=== PATIENT | female | born 1960 | race Caucasian/White ===

== ENCOUNTER → 2024-01-09 15:15 | Outpatient (REF) | payer BC, SELFPAY | LOC: RAD 15:15 | PROVIDERS: ATTENDING PHYSICIAN Physician Assistant; FAMILY PHYSICIAN Family Medicine | DX: E04.1 Nontoxic single thyroid nodule (principal) | CPT/HCPCS: 76536 ==

== ENCOUNTER → 2024-04-07 08:49 | Outpatient (REF) | payer BC, SELFPAY ==
[2024-04-07 10:08] LABS: % Eosinophils 2.7 % (0-6); % Immature Granulocytes 0.7 % (0-0.5); % Lymphocytes 28.9 % (20.5-51.1); % Monocytes 8.2 % (1.7-9.3); % Neutrophils 58.5 % (42.2-75.2); Absolute Basophils 0.1 10^3/uL (0-0.2); Absolute Eosinophils 0.2 10^3/uL (0-0.7); Absolute Immature Granulocytes 0.1 10^3/uL (0-0.05); Absolute Lymphocytes 2.1 10^3/uL (1.2-3.4); Absolute Monocytes 0.6 10^3/uL (0.1-0.6); Absolute Neutrophils 4.3 10^3/uL (1.4-6.5); Hematocrit 38.7 % (37.0-47.0); Hemoglobin 13.3 g/dL (12.0-16.0); Mean Corp Hgb Conc. 34.4 g/dL (33.0-37.0); Mean Corpuscular Hgb 29.7 pg (27.0-31.0); Mean Corpuscular Volume 86.4 fL (81.0-99.0); Mean Platelet Volume 11.9 fL (7.4-10.4); Nucleated Red Blood Cells % 0 %; Platelet Count 257 10^3/uL (130-400); Red Blood Cell Count 4.48 10^6/uL (4.20-5.40); Red Cell Dist. Width 13.1 % (11.5-14.5); White Blood Cell Count 7.3 10^3/uL (4.8-10.8)
[2024-04-07 10:31] LABS: ALT (SGPT) 30 U/L (0-35); AST (SGOT) 43 U/L (14-36); Albumin 4.2 g/dl (3.5-5.0); Alkaline Phosphatase 47 U/L (38-126); Blood Urea Nitrogen 15 mg/dl (7-17); Calcium 10.1 mg/dl (8.4-10.2); Carbon Dioxide 27 mmol/L (22-30); Chloride 106 mmol/L (98-107); Glucose 107 mg/dl (70-99); HDL Cholesterol 30 mg/dl; LDL Cholesterol, Calculated 70 mg/dl; Potassium 3.9 mmol/L (3.5-5.1); Sodium 143 mmol/L (135-145); Total Bilirubin 0.6 mg/dl (0.2-1.3); Total Cholesterol 138 mg/dl (50-199); Total Protein 6.7 g/dl (6.3-8.2); Triglyceride 193 mg/dl (10-149); Very Low Density Lipoprotein 38 mg/dl (0-30); eGFR > 60.00
[2024-04-07 10:46] LABS: Protein/creatinine Ratio 0.1; Urine Protein 17 mg/dl
[2024-04-07 10:50] LABS: Microalbumin, Random Urine 7.8 mg/dl (0.6-1.7); Microalbumin/creatinine Ratio 58.9 mg/g
[2024-04-07 12:11] LABS: Glycohemoglobin (HgbA1c) 6.5 % (4.0-5.6)
[2024-04-07 13:05] LABS: TSH Reflex To Free T4 0.65 uIU/ml (0.47-4.68)
== END ==
LOC: REG 08:49
PROVIDERS: ATTENDING PHYSICIAN Physician Assistant; FAMILY PHYSICIAN Student in an Organized Health Care Education/Training Program
DX: E78.5 Hyperlipidemia, unspecified (principal); E11.9 Type 2 diabetes mellitus without complications; E04.1 Nontoxic single thyroid nodule; Z00.01 Encounter for general adult medical examination with abnormal findings; Z87.891 Personal history of nicotine dependence; J44.9 Chronic obstructive pulmonary disease, unspecified; I10 Essential (primary) hypertension; E11.65 Type 2 diabetes mellitus with hyperglycemia; Z79.4 Long term (current) use of insulin; J30.2 Other seasonal allergic rhinitis; K21.9 Gastro-esophageal reflux disease without esophagitis; F32.A Depression, unspecified; R49.0 Dysphonia
CPT/HCPCS: 36415; 80053; 80061; 82043; 82570; 83036; 84156; 84443; 85025

== ENCOUNTER → 2024-05-14 14:55 | Outpatient (REF) | payer BC, SELFPAY | LOC: WDC 14:55 | PROVIDERS: ATTENDING PHYSICIAN Student in an Organized Health Care Education/Training Program | DX: R92.8 Other abnormal and inconclusive findings on diagnostic imaging of breast (principal) | CPT/HCPCS: 76642 ==

== ENCOUNTER → 2024-07-06 13:30 | Outpatient (REF) | payer BC, SELFPAY | LOC: RAD 13:30 | PROVIDERS: ATTENDING PHYSICIAN Internal Medicine Critical Care Medicine; FAMILY PHYSICIAN Student in an Organized Health Care Education/Training Program | DX: Z87.891 Personal history of nicotine dependence (principal); R05.9 Cough, unspecified | CPT/HCPCS: 71046; 71271 ==

== ENCOUNTER 2024-07-13 16:25 | Emergency (ER) | payer BC, SELFPAY ==
[2024-07-13 16:26] VITALS: BP 149/86
[2024-07-13 16:43] LABS: % Basophils 0.6 % (0-2); % Immature Granulocytes 0.3 % (0-0.5); % Lymphocytes 20.9 % (20.5-51.1); % Monocytes 9.5 % (1.7-9.3); % Neutrophils 66.7 % (42.2-75.2); Absolute Basophils 0.1 10^3/uL (0-0.2); Absolute Eosinophils 0.2 10^3/uL (0-0.7); Absolute Monocytes 0.9 10^3/uL (0.1-0.6); Absolute Neutrophils 6.4 10^3/uL (1.4-6.5); Hematocrit 34.9 % (37.0-47.0); Hemoglobin 12.1 g/dL (12.0-16.0); Mean Corp Hgb Conc. 34.7 g/dL (33.0-37.0); Mean Corpuscular Hgb 29.7 pg (27.0-31.0); Mean Corpuscular Volume 85.5 fL (81.0-99.0); Mean Platelet Volume 11.2 fL (7.4-10.4); Nucleated Red Blood Cells % 0 %; Platelet Count 296 10^3/uL (130-400); Red Blood Cell Count 4.08 10^6/uL (4.20-5.40); Red Cell Dist. Width 12.8 % (11.5-14.5); White Blood Cell Count 9.7 10^3/uL (4.8-10.8)
[2024-07-13 17:13] LABS: ALT (SGPT) 22 U/L (0-35); AST (SGOT) 30 U/L (14-36); Albumin 4.1 g/dl (3.5-5.0); Alkaline Phosphatase 47 U/L (38-126); Blood Urea Nitrogen 24 mg/dl (7-17); Carbon Dioxide 26 mmol/L (22-30); Chloride 102 mmol/L (98-107); Glucose 113 mg/dl (70-99); Potassium 3.6 mmol/L (3.5-5.1); Sodium 143 mmol/L (135-145); Total Bilirubin 0.7 mg/dl (0.2-1.3); Total Protein 6.7 g/dl (6.3-8.2); eGFR 39.16
[2024-07-13 17:14] LABS: Lipase 105 U/L (23-300)
--- NOTE | 2024-07-13 17:32 | ED.GENMED ---
History of Present Illness
<Cecilia Fonseca ASSOCIATE PROFESSOR OF MUSIC - Last Filed: 07/13/24 23:11>
General
Chief Complaint: Abdominal Pain
Source: patient
Exam Limitations: none
Time Seen by Provider: 07/13/24 17:11
Nursing documentation reviewed up to this point in time: agreed with
History of Present Illness
History of Present Illness:
63-year-old female with history of IDDM, diabetic neuropathy, HTN, HLD, GERD, Cholecystectomy, congenital solitary L kidney, presents with 5 days of 'weird' taste in her mouth, anytime she eats, 10 minutes later she has 'really bad stomach pains.'
She is had diarrhea 6 or 7 times a day, sometimes just soft stools sometimes liquid diarrhea, nonbloody. She has had intermittent fever, temp max was 100.2 four days ago. She has had intermittent nausea but no vomiting.
She was treated for URI from 06/25-07/05 with doxycycline 100 twice daily x 10 days and prednisone 20 mg daily for 8 days, then a Z-Apolinar from 07/06-11/10 URI improved
Past History
<Cecilia Fonseca ASSOCIATE PROFESSOR OF MUSIC - Last Filed: 07/13/24 23:11>
Past History
ED Past Medical History: Asthma, HTN, Hypercholesterolemia, IDDM and Other (L solitary kidney from , )
ED Past Surgical History: Cholecystectomy, and Orthopedic
Social History
Tobacco: Non-smoker
Alcohol: None
Personal:
Living: with family
Employment: Employed
Review of Systems
<Cecilia Fonseca ASSOCIATE PROFESSOR OF MUSIC - Last Filed: 07/13/24 23:11>
Review of Systems
Allergies reviewed?: Yes
All Other Systems: ROS reviewed and negative except as documented in HPI and ROS
Constitutional: Reports fever (intermittent low grade)
Respiratory: Denies trouble breathing
Cardiac: Denies chest pain
ABD/GI: Reports abdominal pain, nausea, diarrhea and anorexia; Denies vomiting, bloody stools or black stools
: Reports no symptoms
Musculoskeletal: Reports no symptoms
Skin: Reports no symptoms
Neurological: Reports no symptoms
Phy Exam
<Cecilia Fonseca ASSOCIATE PROFESSOR OF MUSIC - Last Filed: 07/13/24 23:11>
Physical Exam
Physical Exam:
GENERAL: No acute distress. A&Ox3.
CONSTITUTIONAL: Afebrile.
EYES: clear, conjunctivae normal
ENMT: moist mucus membranes, Pharynx nl
RESPIRATORY: Regular respirations, nonlabored, lungs clear.
CARDIOVASCULAR: Regular rate and rhythm, no murmurs, no rubs.
GI: Soft, tender left side abdomen, nontender, normal BS
MUSCULOSKELETAL: Moves with ease. Well perfused.
SKIN: Warm, dry, pink
PSYCH: Normal mood and affect. Well kept, interactive and appropriate
NEUROLOGIC: Awake, alert and oriented. No focal neurological deficits
Course
<Cecilia Fonseca, ASSOCIATE PROFESSOR OF MUSIC - Last Filed: 07/13/24 23:11>
Orders/Labs/Results
Orders:
Orders
07/13/24 16:31
CBC/With Diff [Complete Blood Count/With Diff] Urgent
CMP [Comprehensive Metabolic Panel] Urgent
Lipase Urgent
07/13/24 17:33
0.9% Sodium Chloride 1000 ml [Nss] 1,000 ml IV BOLUS
07/13/24 18:24
Iohexol [Omnipaque] See Protocol PO NOW STA
07/13/24 18:25
CT Abd/pel (oral only)-DH Only Urgent
Comment:
Reason For Exam: L abd pain
07/13/24 18:35
Urinalysis Reflex To Culture Urgent
Date Specimen was Collected: 07/13/24
Time Specimen was Collected: 18:26
Urine Microscopic Reflex Cult Urgent
Urine Culture Urgent
BASSAM Source: U
Specimen Description:
Date Specimen was Collected: 07/13/24
Time Specimen was Collected: 18:26
07/13/24 20:50
STOOL [C difficile Antigen & Toxins] Urgent
BASSAM Source: Feces/Stool
Specimen Description:
Date Specimen was Collected: 07/13/24
Time Specimen was Collected: 20:49
Stool Culture Urgent
BASSAM Source: Feces/Stool
Specimen Description:
Date Specimen was Collected: 07/13/24
Time Specimen was Collected: 20:49
07/13/24 22:16
Dicyclomine [Bentyl] 10 mg PO NOW STA
Abnormal Lab Results
07/13/24 07/13/24
16:31 18:35
RBC 4.08 L 10^6/uL
(4.20-5.40)
Hct 34.9 L %
(37.0-47.0)
MPV 11.2 H fL
(7.4-10.4)
Absolute Monos (auto) 0.9 H 10^3/uL
(0.1-0.6)
Monocytes % 9.5 H %
(1.7-9.3)
BUN 24 H mg/dl
(7-17)
Creatinine 1.5 H mg/dL
(0.6-1.0)
Glucose 113 H mg/dl
(70-99)
Leukocyte Esterase Rfl 1+ A
(Negative)
07/13/24 16:31
07/13/24 16:31
Vital Signs
Initial and Last Documented VS:
Initial Vital Signs
Temp Pulse Resp BP Pulse Ox
98.3 F 95 19 149/86 95
07/13/24 16:26 07/13/24 16:26 07/13/24 16:26 07/13/24 16:26 07/13/24 16:26
Last Documented Vital Signs
Temp Pulse Resp BP Pulse Ox
98.3 F 95 21 150/82 96
07/13/24 16:26 07/13/24 20:30 07/13/24 20:30 07/13/24 20:08 07/13/24 20:30
<Florentino Hatch PA-C - Last Filed: 07/14/24 10:29>
Orders/Labs/Results
Orders:
Orders
07/13/24 16:31
CBC/With Diff [Complete Blood Count/With Diff] Urgent
CMP [Comprehensive Metabolic Panel] Urgent
Lipase Urgent
07/13/24 17:33
0.9% Sodium Chloride 1000 ml [Nss] 1,000 ml IV BOLUS
07/13/24 18:24
Iohexol [Omnipaque] See Protocol PO NOW STA
07/13/24 18:25
CT Abd/pel (oral only)-DH Only Urgent
Comment:
Reason For Exam: L abd pain
07/13/24 18:35
Urinalysis Reflex To Culture Urgent
Date Specimen was Collected: 07/13/24
Time Specimen was Collected: 18:26
Urine Microscopic Reflex Cult Urgent
Urine Culture Urgent
BASSAM Source: U
Specimen Description:
Date Specimen was Collected: 07/13/24
Time Specimen was Collected: 18:26
07/13/24 20:50
STOOL [C difficile Antigen & Toxins] Urgent
B[facility] Source: Feces/Stool
Specimen Description:
Date Specimen was Collected: 07/13/24
Time Specimen was Collected: 20:49
Stool Culture Urgent
BASSAM Source: Feces/Stool
Specimen Description:
Date Specimen was Collected: 07/13/24
Time Specimen was Collected: 20:49
07/13/24 22:16
Dicyclomine [Bentyl] 10 mg PO NOW STA
Abnormal Lab Results
07/13/24 07/13/24
16:31 18:35
RBC 4.08 L 10^6/uL
(4.20-5.40)
Hct 34.9 L %
(37.0-47.0)
MPV 11.2 H fL
(7.4-10.4)
Absolute Monos (auto) 0.9 H 10^3/uL
(0.1-0.6)
Monocytes % 9.5 H %
(1.7-9.3)
BUN 24 H mg/dl
(7-17)
Creatinine 1.5 H mg/dL
(0.6-1.0)
Glucose 113 H mg/dl
(70-99)
Leukocyte Esterase Rfl 1+ A
(Negative)
07/13/24 16:31
07/13/24 16:31
Vital Signs
Initial and Last Documented VS:
Initial Vital Signs
Temp Pulse Resp BP Pulse Ox
98.3 F 95 19 149/86 95
07/13/24 16:26 07/13/24 16:26 07/13/24 16:26 07/13/24 16:26 07/13/24 16:26
Last Documented Vital Signs
Temp Pulse Resp BP Pulse Ox
98.3 F 95 21 150/82 96
07/13/24 16:26 07/13/24 20:30 07/13/24 20:30 07/13/24 20:08 07/13/24 20:30
<Cecilia Fonseca ASSOCIATE PROFESSOR OF MUSIC - Last Filed: 07/13/24 23:11>
MDM/Problems Addressed
Differential Diagnosis Includes:
dehydration, diverticulitis, pyelonephritis, UTI, c diff, colitis
MDM/Problems Addressed:
63-year-old female with history of IDDM, diabetic neuropathy, HTN, HLD, GERD, Cholecystectomy, congenital solitary L kidney, presents with 5 days of 'weird' taste in her mouth, anytime she eats, 10 minutes later she has 'really bad stomach pains.'
She is had diarrhea 6 or 7 times a day, sometimes just soft stools sometimes liquid diarrhea, nonbloody. She has had intermittent fever, temp max was 100.2 four days ago. She has had intermittent nausea but no vomiting.
She was treated for URI from 06/25-07/05 with doxycycline 100 twice daily x 10 days and prednisone 20 mg daily for 8 days, then a Z-Apolinar from 07/06-11/10 URI improved
5:30 PM: Patient
CBC with no clinically significant abnormality
CMP: BUN/creat 30/11. new for patient, concerning as patient has a solitary left kidney. Otherwise normal
Lipase normal
Approx 150 ml liquid greenish brown diarrheal stool sent for culture.
9:[address] abd/pelvis w po contrast: Radiology report read:
IMPRESSION: Coronary artery calcifications are present. Please correlate with symptoms of and risk factors for coronary artery disease, with further workup as clinically appropriate.
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
Hypertrophy of the left kidney. 5 mm hyperdense cyst arising in the lateral mid to lower left kidney.
Hepatomegaly with diffuse fatty infiltration of the liver. Status post cholecystectomy with no evidence for biliary ductal dilation.
Moderate vascular calcification with no aortic aneurysm.
Bony degenerative changes as described.
Case discussed with Dr. Viveros, agrees: All above changes are chronic, nothing acute
Hydrated with 1 L NSS, will have pt recheck kidney functions in a week.
Stool culture and c diff pending.
Bentyl for stomach cramps
Pt comfortable going home, DC'd to care of
Denies abdominal pain at this time.
<Cecilia Fonseca ASSOCIATE PROFESSOR OF MUSIC - Last Filed: 07/13/24 23:11>
*Critical Care Note
Total Time (30-74mins, 75-104mins- exclusive of procedures): Not Applicable
<Florentino Hatch PA-C - Last Filed: 07/14/24 10:29>
Update Note
Update Note:
07/14/2024 10:27-- Took call from pt re: positive C diff test. Will start PO vancomycin, discussed supportive care and future need for prophylactic vanco with future abx courses.
ED Attending Note
<Cecilia Fonseca NP - Last Filed: 07/13/24 23:11>
-
Portions of this chart may have been created with voice recognition software.� Occasional wrong word or��sound alike� substitutions may have occurred due to the inherent limitations of voice recognition software.
Discharge Plan
Departure
Patient Disposition: Home (Routine Discharge)
Date of Disposition: 07/13/24
Time of Disposition: 22:17
Patient with high blood pressure during this ER visit?: Yes
Condition: Fair
Discharge Problem:
Abdominal pain, Diarrhea, Acute dehydration
Instructions: Diarrhea, Adult ED, Abdominal Pain
Prescriptions:
New
dicyclomine 10 mg capsule
10 mg PO QID PRN (Reason: abdominal cramps) Qty: 20 0RF
vancomycin 125 mg capsule
125 mg PO QID 14 Days Qty: 56 0RF
No Action
atorvastatin 40 mg Tablet
40 mg PO QPM
cetirizine [Zyrtec] 10 mg Tablet
10 mg PO QPM
amlodipine 10 mg Tablet
10 mg PO DAILY
ferrous sulfate [iron] 325 mg (65 mg iron) Tablet
325 mg PO QPM
montelukast [Singulair] 10 mg Tablet
10 mg PO QPM
aspirin 81 mg Tablet
81 mg PO DAILY
albuterol sulfate [ProAir HFA] 90 mcg/actuation Hfa Aerosol Inhaler
2 puff INHALATION QID PRN (Reason: asthma)
Humalog U-100 Insulin 100 unit/mL Cartridge
1 sliding scale dose SC DIRECTED
Rx Instructions:
insulin pump- removed this am, 11/03/23
bupropion HCl [Wellbutrin XL] 150 mg Tablet Extended Release 24 Hr
150 mg PO DAILY
losartan-hydrochlorothiazide 100-12.5 mg Tablet
1 tab PO DAILY
fenofibric acid 35 mg Tablet
35 mg PO DAILY
Breztri Aerosphere 160-9-4.8 mcg/actuation Hfa Aerosol Inhaler
2 inh INHALATION BID
pantoprazole 40 mg Tablet,Delayed Release (Dr/Ec)
40 mg PO DAILY
acetaminophen [acetaminophen] 325 mg tablet
650 mg PO Q6HPRN PRN (Reason: mild pain) Qty: 14 0RF
tramadol 50 mg tablet
25 mg PO Q6HPRN PRN (Reason: severe pain/breakthrough pain) Qty: 8 0RF
ibuprofen 600 mg tablet
600 mg PO Q6H PRN (Reason: pain) Qty: 14 0RF
Referrals:
Serjio Chamberlain, DO [Family Provider] - Call in 1-3 days for appt
Activity Restrictions/Additional Instructions:
As we discussed, I sent a prescription to your pharmacy for Bentyl to use if it helps with the abdominal cramping.
Start with liquid diet only and then stick with a bland diet until you are feeling better.
Look on the patient portal tomorrow to get the C. difficile results. If you have not received a phone call from us regarding the C. difficile and it is positive, call here at [phone] to get the results and treatment.
Return here immediately for fever, worsening abdominal pain, bloody diarrhea, vomiting or feeling sicker in any way.
Interventions
Interventions:
*Risk Screen - Suicide Last Done: 07/13/24 16:30
*General Assessment Last Done: 07/13/24 16:30
ED- Fall Risk Assessment Last Done: 07/13/24 17:30
*Nursing Disposition Last Done: 07/13/24 22:35
ZV-Dazjvk-Fterngopht Assessment Last Done: 07/13/24 17:30
Discharge Date and Time
Discharge Date/Time: 07/13/24 22:36
Print Language: KINYARWANDA
[2024-07-13] MEDS: NSS 1000 IV (17:43)
[2024-07-13] MEDS: OMNIPAQUE 50 ML PO (18:34)
[2024-07-13 19:07] LABS: Urine Albumin Negative (Neg - Trace); Urine Bilirubin Negative (Negative); Urine Character Clear (Clear); Urine Color Yellow; Urine Glucose Negative (Negative); Urine Ketone Negative (Negative); Urine Leukocyte 1+ (Negative); Urine Nitrite Negative (Negative); Urine Occult Blood Negative (Negative); Urine Urobilinogen Negative (Neg - 1+)
[2024-07-13 19:20] LABS: Urine Red Blood Cell 0-2 /HPF (0-2)
[2024-07-13 20:08] VITALS: BP 150/82
[2024-07-13] MEDS: BENTYL 10 MG PO (22:28)
== END 2024-07-13 22:36 | disposition home or self-care (01) ==
LOC: EMR 16:25
PROVIDERS: Registered Nurse; EMERGENCY PHYSICIAN Emergency Medicine; FAMILY PHYSICIAN Family Medicine
DX: E86.0 Dehydration (principal); R19.7 Diarrhea, unspecified; R10.9 Unspecified abdominal pain; R11.0 Nausea; R50.9 Fever, unspecified; A04.72 Enterocolitis due to Clostridium difficile, not specified as recurrent; I10 Essential (primary) hypertension; N28.1 Cyst of kidney, acquired; K76.0 Fatty (change of) liver, not elsewhere classified; E11.40 Type 2 diabetes mellitus with diabetic neuropathy, unspecified; E78.00 Pure hypercholesterolemia, unspecified; M19.90 Unspecified osteoarthritis, unspecified site; I25.10 Atherosclerotic heart disease of native coronary artery without angina pectoris; J45.909 Unspecified asthma, uncomplicated; K21.9 Gastro-esophageal reflux disease without esophagitis; Q60.0 Renal agenesis, unilateral; Z79.82 Long term (current) use of aspirin; Z79.4 Long term (current) use of insulin; Z87.891 Personal history of nicotine dependence; Z90.49 Acquired absence of other specified parts of digestive tract; Z88.1 Allergy status to other antibiotic agents; Z88.0 Allergy status to penicillin; Z88.8 Allergy status to other drugs, medicaments and biological substances
CPT/HCPCS: 99284; 96360; 74176; 80053; 81003; 81015; 83690; 85025; 87045; 87046; 87086; 87324; 87427; 87449

== ENCOUNTER → 2024-07-23 15:50 | Outpatient (REF) | payer BC, SELFPAY ==
[2024-07-23 16:57] LABS: Blood Urea Nitrogen 17 mg/dl (7-17); Calcium 10.2 mg/dl (8.4-10.2); Carbon Dioxide 28 mmol/L (22-30); Chloride 104 mmol/L (98-107); Glucose 94 mg/dl (70-99); Sodium 145 mmol/L (135-145); eGFR > 60.00
== END ==
LOC: REG 15:50
PROVIDERS: ATTENDING PHYSICIAN Student in an Organized Health Care Education/Training Program
DX: R79.89 Other specified abnormal findings of blood chemistry (principal)
CPT/HCPCS: 36415; 80048

== ENCOUNTER → 2024-08-16 18:52 | Outpatient (REF) | payer BC, SELFPAY | LOC: WDC 18:52 | PROVIDERS: ATTENDING PHYSICIAN Student in an Organized Health Care Education/Training Program | DX: Z12.31 Encounter for screening mammogram for malignant neoplasm of breast (principal) | CPT/HCPCS: 77063; 77067 ==

== ENCOUNTER → 2024-08-18 07:36 | Outpatient (REF) | payer BC, SELFPAY ==
[2024-08-18 08:50] LABS: % Basophils 1.3 % (0-2); % Eosinophils 4.5 % (0-6); % Immature Granulocytes 0.6 % (0-0.5); % Lymphocytes 28.1 % (20.5-51.1); % Monocytes 8.5 % (1.7-9.3); Absolute Basophils 0.1 10^3/uL (0-0.2); Absolute Eosinophils 0.3 10^3/uL (0-0.7); Absolute Lymphocytes 1.9 10^3/uL (1.2-3.4); Absolute Monocytes 0.6 10^3/uL (0.1-0.6); Absolute Neutrophils 3.8 10^3/uL (1.4-6.5); Hematocrit 39.9 % (37.0-47.0); Hemoglobin 13.9 g/dL (12.0-16.0); Mean Corp Hgb Conc. 34.8 g/dL (33.0-37.0); Mean Corpuscular Hgb 30.3 pg (27.0-31.0); Mean Corpuscular Volume 87.1 fL (81.0-99.0); Mean Platelet Volume 12.3 fL (7.4-10.4); Nucleated Red Blood Cells % 0 %; Platelet Count 236 10^3/uL (130-400); Red Blood Cell Count 4.58 10^6/uL (4.20-5.40); Red Cell Dist. Width 13.4 % (11.5-14.5); White Blood Cell Count 6.7 10^3/uL (4.8-10.8)
[2024-08-18 09:17] LABS: ALT (SGPT) 28 U/L (0-35); AST (SGOT) 44 U/L (14-36); Albumin 4.4 g/dl (3.5-5.0); Alkaline Phosphatase 39 U/L (38-126); Blood Urea Nitrogen 15 mg/dl (7-17); Calcium 10.2 mg/dl (8.4-10.2); Carbon Dioxide 27 mmol/L (22-30); Chloride 106 mmol/L (98-107); Glucose 115 mg/dl (70-99); HDL Cholesterol 29 mg/dl; LDL Cholesterol, Calculated 57 mg/dl; Potassium 4.1 mmol/L (3.5-5.1); Sodium 144 mmol/L (135-145); Total Bilirubin 0.4 mg/dl (0.2-1.3); Total Cholesterol 120 mg/dl (50-199); Total Protein 6.7 g/dl (6.3-8.2); Triglyceride 173 mg/dl (10-149); Very Low Density Lipoprotein 34 mg/dl (0-30); eGFR > 60.00
[2024-08-18 09:38] LABS: TSH 0.95 uIU/ml (0.47-4.68)
[2024-08-18 11:31] LABS: Glycohemoglobin (HgbA1c) 6.3 % (4.0-5.6)
== END ==
LOC: REG 07:36
PROVIDERS: ATTENDING PHYSICIAN Physician Assistant; FAMILY PHYSICIAN Student in an Organized Health Care Education/Training Program
DX: E11.65 Type 2 diabetes mellitus with hyperglycemia (principal); E78.5 Hyperlipidemia, unspecified; E04.1 Nontoxic single thyroid nodule
CPT/HCPCS: 36415; 80053; 80061; 83036; 84443; 85025

== ENCOUNTER → 2025-01-09 15:12 | Outpatient (REF) | payer BC, SELFPAY | LOC: RAD 15:12 | PROVIDERS: ATTENDING PHYSICIAN Physician Assistant; FAMILY PHYSICIAN Student in an Organized Health Care Education/Training Program | DX: E04.1 Nontoxic single thyroid nodule (principal) | CPT/HCPCS: 76536 ==

== ENCOUNTER → 2025-01-14 14:50 | Outpatient (REF) | payer BC, SELFPAY | LOC: WDC 14:50 | PROVIDERS: ATTENDING PHYSICIAN Student in an Organized Health Care Education/Training Program | DX: R92.2 Inconclusive mammogram (principal) | CPT/HCPCS: 76641 ==

== ENCOUNTER → 2025-02-16 07:49 | Outpatient (REF) | payer BC, SELFPAY ==
[2025-02-16 09:23] LABS: % Basophils 1.3 % (0-2); % Eosinophils 2.7 % (0-6); % Immature Granulocytes 0.8 % (0-0.5); % Lymphocytes 31.7 % (20.5-51.1); % Monocytes 10.1 % (1.7-9.3); % Neutrophils 53.4 % (42.2-75.2); Absolute Basophils 0.1 10^3/uL (0-0.2); Absolute Eosinophils 0.2 10^3/uL (0-0.7); Absolute Immature Granulocytes 0.1 10^3/uL (0-0.05); Absolute Lymphocytes 2.4 10^3/uL (1.2-3.4); Absolute Monocytes 0.8 10^3/uL (0.1-0.6); Hemoglobin 13.9 g/dL (12.0-16.0); Mean Corp Hgb Conc. 33.9 g/dL (33.0-37.0); Mean Corpuscular Hgb 29.8 pg (27.0-31.0); Mean Platelet Volume 12.3 fL (7.4-10.4); Nucleated Red Blood Cells % 0 %; Platelet Count 216 10^3/uL (130-400); Red Blood Cell Count 4.66 10^6/uL (4.20-5.40); Red Cell Dist. Width 13.2 % (11.5-14.5); White Blood Cell Count 7.4 10^3/uL (4.8-10.8)
[2025-02-16 09:37] LABS: ALT (SGPT) 41 U/L (0-35); AST (SGOT) 58 U/L (14-36); Albumin 4.6 g/dl (3.5-5.0); Alkaline Phosphatase 47 U/L (38-126); Blood Urea Nitrogen 15 mg/dl (7-17); Calcium 10.1 mg/dl (8.4-10.2); Carbon Dioxide 30 mmol/L (22-30); Chloride 107 mmol/L (98-107); Glucose 106 mg/dl (70-99); HDL Cholesterol 33 mg/dl; LDL Cholesterol, Calculated 66 mg/dl; Potassium 4.2 mmol/L (3.5-5.1); Sodium 144 mmol/L (135-145); Total Bilirubin 0.7 mg/dl (0.2-1.3); Total Cholesterol 130 mg/dl (50-199); Total Protein 6.7 g/dl (6.3-8.2); Triglyceride 159 mg/dl (10-149); Very Low Density Lipoprotein 31 mg/dl (0-30); eGFR > 60.00
[2025-02-16 10:46] LABS: Protein/creatinine Ratio 0.1; Urine Protein 15 mg/dl
[2025-02-16 10:57] LABS: Microalbumin, Random Urine 5.9 mg/dl (0.6-1.7); Microalbumin/creatinine Ratio 33.1 mg/g
[2025-02-16 11:40] LABS: Glycohemoglobin (HgbA1c) 6.2 % (4.0-5.6)
== END ==
LOC: REG 07:49
PROVIDERS: ATTENDING PHYSICIAN Physician Assistant; FAMILY PHYSICIAN Student in an Organized Health Care Education/Training Program
DX: E11.65 Type 2 diabetes mellitus with hyperglycemia (principal)
CPT/HCPCS: 36415; 80053; 80061; 82043; 82570; 83036; 84156; 85025

== ENCOUNTER → 2025-03-06 12:16 | Outpatient (REF) | payer BC, SELFPAY ==
[2025-03-06 12:30] VITALS: BP 156/88; BP_SYST 84
== END ==
LOC: RADI 12:16
PROVIDERS: ATTENDING PHYSICIAN Physician Assistant; FAMILY PHYSICIAN Student in an Organized Health Care Education/Training Program
DX: E04.1 Nontoxic single thyroid nodule (principal)
CPT/HCPCS: 88173; 10005

== ENCOUNTER 2025-04-23 06:04 | Day surgery (SDC) | payer BC, SELFPAY ==
[2025-04-15 06:58] LABS: Hematocrit 39.1 % (37.0-47.0); Hemoglobin 13.6 g/dL (12.0-16.0); Mean Corp Hgb Conc. 34.8 g/dL (33.0-37.0); Mean Corpuscular Hgb 30.2 pg (27.0-31.0); Mean Corpuscular Volume 86.9 fL (81.0-99.0); Mean Platelet Volume 11.8 fL (7.4-10.4); Platelet Count 213 10^3/uL (130-400); Red Cell Dist. Width 12.6 % (11.5-14.5); White Blood Cell Count 7.6 10^3/uL (4.8-10.8)
[2025-04-15 07:07] LABS: INR 0.99; PT 13.4 Sec (11.4-14.6)
[2025-04-15 07:08] LABS: APTT 29.7 Sec (23.4-35.0)
[2025-04-15 07:23] LABS: ALT (SGPT) 30 U/L (0-35); AST (SGOT) 37 U/L (14-36); Albumin 4.4 g/dl (3.5-5.0); Alkaline Phosphatase 41 U/L (38-126); Blood Urea Nitrogen 18 mg/dl (7-17); Calcium 10.1 mg/dl (8.4-10.2); Carbon Dioxide 24 mmol/L (22-30); Chloride 110 mmol/L (98-107); Glucose 108 mg/dl (70-99); Potassium 3.8 mmol/L (3.5-5.1); Sodium 145 mmol/L (135-145); Total Bilirubin 0.5 mg/dl (0.2-1.3); Total Protein 6.8 g/dl (6.3-8.2); eGFR > 60.00
[2025-04-15 13:43] VITALS: BMI 29.2
[2025-04-23] VITALS (9 sets, daily range): BP systolic 107–171; BP diastolic 68–90; BMI 29.2
[2025-04-23 07:10] LABS: Glucose - Point of Care 124 mg/dl (70-99)
[2025-04-23] MEDS: NEURONTIN 300 MG PO (07:13)
[2025-04-23] MEDS: NORMOSOL-R/PLASMALYTE-A 1000 IV (07:13)
[2025-04-23] MEDS: HEPARIN 5000 UNITS SC (07:13)
[2025-04-23] MEDS: TYLENOL 1000 MG PO (07:13)
--- NOTE | 2025-04-23 08:54 | OR.RPT ---
Operative Report
Operative Report
DATE OF OPERATION: April 23, 2025
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
POSTOPERATIVE DIAGNOSIS: Same
SURGEON: Emanuel Jiang M.D.
OPERATION: Right thyroidectomy, isthmus resection, and limited neck dissection - 52928
ANESTHESIA: GET
ESTIMATED BLOOD LOSS: 3 cc
DRAINS: None
SPECIMEN: Right total thyroid lobe, isthmus, and right level paratracheal tissue containing lymph nodes
FINDINGS: right thyroid tumor
COMPLICATIONS: None
PROCEDURE:
The patient was taken to the operating room and placed in the usual supine position. After adequate general endotracheal anesthesia was established, the patient�s neck was extended, prepped, and draped in the typical sterile fashion. A 4 cm
transcervical incision was made two fingerbreadths above the sternal notch. The skin incision was made with the #15 blade, which was taken through the skin into the subcutaneous tissue. The underlying platysma muscle was divided, and subplatysmal
flaps were created superiorly to the thyroid cartilage and inferiorly to the sternal notch. Strap muscles were identified and at the midline.
Attention was turned to the patient�s right thyroid lobe. The right thyroid lobe was mobilized medially. During this process, the right middle thyroid vein and inferior thyroid artery were dissected and ligated with Ligasure. Next, the right
superior pole was taken down by dissecting and transecting the superior pole vessels with a Ligasure. The right thyroid lobe was mobilized medially. During this process, the right recurrent laryngeal nerve was identified and preserved throughout its
entire course. The right superior parathyroid gland was identified and preserved. The right thyroid lobe with isthmus was resected off the trachea and sent to the pathology department.
At this time, the right level 6 selective neck dissection was performed. The tissue between the right carotid artery to the trachea in the anterior mediastinum was carefully dissected. The previously identified recurrent laryngeal nerve and
parathyroid glands were preserved. The tissue was removed and sent to the pathology department.
After obtaining adequate hemostasis, the strap muscle was approximated with #3-0 Vicryl in a running fashion, and the platysma muscles were reapproximated with #3-0 Vicryl in an interrupted fashion, and the skin was approximated with #4-0 Monocryl
in a running subcuticular fashion. Steri-strips and sterile dressings were placed. The patient tolerated the procedure well. The final instrument, needle, and sponge counts were correct.
[2025-04-23 09:05] LABS: Glucose - Point of Care 129 mg/dl (70-99)
[2025-04-23] MEDS: DILAUDID 0.25 MG IV (09:32)
== END 2025-04-23 11:10 | disposition home or self-care (01) ==
LOC: SDS 06:04
PROVIDERS: ATTENDING PHYSICIAN Surgery; FAMILY PHYSICIAN Student in an Organized Health Care Education/Training Program; OTHER PHYSICIAN Internal Medicine Cardiovascular Disease
DX: C73 Malignant neoplasm of thyroid gland (principal); E04.1 Nontoxic single thyroid nodule
CPT/HCPCS: 60252; 88307; 80053; 82962; 85027; 85610; 85730; C1776

== ENCOUNTER → 2025-06-01 08:10 | Outpatient (REF) | payer BC, SELFPAY ==
[2025-06-01 13:05] LABS: TSH 2.13 uIU/ml (0.47-4.68)
[2025-06-02 18:17] LABS: Thyroglobulin 3.4 ng/mL (1.3-31.8); Thyroglobulin Antibodies <1.5 IU/mL (0.0-4.0)
== END ==
LOC: REG 08:10
PROVIDERS: ATTENDING PHYSICIAN Physician Assistant
DX: E04.1 Nontoxic single thyroid nodule (principal); C73 Malignant neoplasm of thyroid gland
CPT/HCPCS: 36415; 84432; 84439; 84443; 86376; 86800

== ENCOUNTER → 2025-07-09 16:50 | Outpatient (REF) | payer BC, SELFPAY | LOC: RAD 16:50 | PROVIDERS: ATTENDING PHYSICIAN Internal Medicine Critical Care Medicine; FAMILY PHYSICIAN Student in an Organized Health Care Education/Training Program | DX: Z87.891 Personal history of nicotine dependence (principal) | CPT/HCPCS: 71271 ==

== ENCOUNTER → 2025-08-03 09:02 | Outpatient (REF) | payer BC, SELFPAY ==
[2025-08-03 10:17] LABS: Hematocrit 41.2 % (37.0-47.0); Hemoglobin 13.7 g/dL (12.0-16.0); Mean Corp Hgb Conc. 33.3 g/dL (33.0-37.0); Mean Corpuscular Volume 86.4 fL (81.0-99.0); Nucleated Red Blood Cells % 0 %; Platelet Count 205 10^3/uL (130-400); Red Cell Dist. Width 13.0 % (11.5-14.5)
[2025-08-03 10:57] LABS: ALT (SGPT) 39 U/L (0-35); AST (SGOT) 63 U/L (14-36); Albumin 4.6 g/dl (3.5-5.0); Alkaline Phosphatase 40 U/L (38-126); Blood Urea Nitrogen 15 mg/dl (7-17); Calcium 10.1 mg/dl (8.4-10.2); Carbon Dioxide 28 mmol/L (22-30); Chloride 106 mmol/L (98-107); Glucose 87 mg/dl (70-99); HDL Cholesterol 33 mg/dl; LDL Cholesterol, Calculated 51 mg/dl; Potassium 4.2 mmol/L (3.5-5.1); Sodium 143 mmol/L (135-145); Total Protein 7.2 g/dl (6.3-8.2); Very Low Density Lipoprotein 35 mg/dl (0-30); eGFR > 60.00
[2025-08-03 11:22] LABS: Glycohemoglobin (HgbA1c) 6.2 % (4.0-5.6)
[2025-08-03 11:23] LABS: Microalb - Urine Creatinine 93.500 mg/dl
[2025-08-03 11:27] LABS: Microalbumin, Random Urine 1.2 mg/dl (0.6-1.7)
[2025-08-03 11:28] LABS: TSH 3.20 uIU/ml (0.47-4.68)
== END ==
LOC: REG 09:02
PROVIDERS: ATTENDING PHYSICIAN Physician Assistant; FAMILY PHYSICIAN Physician Assistant Medical
DX: E04.1 Nontoxic single thyroid nodule (principal); E11.65 Type 2 diabetes mellitus with hyperglycemia
CPT/HCPCS: 36415; 80053; 80061; 82043; 82570; 83036; 84156; 84439; 84443; 85025

== ENCOUNTER → 2025-08-20 14:59 | Outpatient (REF) | payer BC, SELFPAY | LOC: WDC 14:59 | PROVIDERS: ATTENDING PHYSICIAN Physician Assistant Medical | DX: Z12.31 Encounter for screening mammogram for malignant neoplasm of breast (principal) | CPT/HCPCS: 77063; 77067 ==

== ENCOUNTER → 2025-09-24 15:19 | Outpatient (REF) | payer BC, SELFPAY | LOC: RAD 15:19 | PROVIDERS: ATTENDING PHYSICIAN Internal Medicine Nephrology; FAMILY PHYSICIAN Physician Assistant Medical | DX: N28.1 Cyst of kidney, acquired (principal) | CPT/HCPCS: 76775 ==

== ENCOUNTER → 2025-11-01 08:43 | Outpatient (REF) | payer BC, SELFPAY ==
[2025-11-01 09:22] LABS: Hematocrit 38.4 % (37.0-47.0); Hemoglobin 12.8 g/dL (12.0-16.0); Mean Corp Hgb Conc. 33.3 g/dL (33.0-37.0); Mean Corpuscular Volume 87.7 fL (81.0-99.0); Nucleated Red Blood Cells % 0 %; Platelet Count 195 10^3/uL (130-400); Red Cell Dist. Width 12.9 % (11.5-14.5)
[2025-11-01 09:37] LABS: Glycohemoglobin (HgbA1c) 6.1 % (4.0-5.9)
[2025-11-01 09:50] LABS: ALT (SGPT) 32 U/L (0-35); AST (SGOT) 53 U/L (14-36); Albumin 4.5 g/dl (3.5-5.0); Alkaline Phosphatase 42 U/L (38-126); Blood Urea Nitrogen 19 mg/dl (7-17); Calcium 10.2 mg/dl (8.4-10.2); Carbon Dioxide 27 mmol/L (22-30); Chloride 105 mmol/L (98-107); Glucose 117 mg/dl (70-99); Potassium 3.8 mmol/L (3.5-5.1); Sodium 141 mmol/L (135-145); Total Protein 7.2 g/dl (6.3-8.2); eGFR > 60.00
[2025-11-01 10:20] LABS: TSH 3.55 uIU/ml (0.47-4.68)
== END ==
LOC: REG 08:43
PROVIDERS: ATTENDING PHYSICIAN Physician Assistant; FAMILY PHYSICIAN Physician Assistant Medical; OTHER PHYSICIAN Internal Medicine Nephrology
DX: I10 Essential (primary) hypertension (principal); E89.0 Postprocedural hypothyroidism; E11.65 Type 2 diabetes mellitus with hyperglycemia; E04.1 Nontoxic single thyroid nodule
CPT/HCPCS: 36415; 80053; 82570; 83036; 84156; 84432; 84439; 84443; 85025; 86376; 86800